=== PATIENT | female | born 1995 | race Hispanic/Latino ===

== ENCOUNTER 2022-04-24 14:50 | Outpatient (CLI) | payer OTHER | END 2022-04-24 14:51 | disposition home or self-care (01) | LOC: CSHULT 14:50 | PROVIDERS: ATTEND Family Medicine | DX: Z34.83 Encounter for supervision of other normal pregnancy, third trimester (principal); Z3A.31 31 weeks gestation of pregnancy | CPT/HCPCS: 76805 ==

== ENCOUNTER 2022-06-05 11:19 | Inpatient (IN) | payer MEDICAID, OTHER ==
[2022-06-05] MEDS ORDERED: hydrALAZINE 20 MG/ML VIAL SLOW IVP PRN ×2 (12:16→22:05)
[2022-06-05] MEDS ORDERED: HYDROcodone/Acetaminophen 5/325 mg Tablet PO PRN (12:16)
[2022-06-05] MEDS ORDERED: Diphenoxylate HCl/Atropine Tablet PO PRN (12:16)
[2022-06-05] MEDS ORDERED: Carboprost 250 MCG/ML AMP IM PRN (12:16)
[2022-06-05] MEDS ORDERED: Methylergonovine 0.2 MG/ML VIAL IM PRN (12:16)
[2022-06-05] MEDS ORDERED: Promethazine HCl 25 MG/ML VIAL IM PRN ×3 (12:16→22:05)
[2022-06-05] MEDS ORDERED: Acetaminophen 500 MG TAB PO PRN (12:16)
[2022-06-05] MEDS ORDERED: Ibuprofen 800 MG TAB PO PRN (12:16)
[2022-06-05] MEDS ORDERED: Misoprostol 200 MCG TAB PR PRN (12:16)
[2022-06-05] MEDS ORDERED: Butorphanol Tartrate 1 MG/ML VIAL SLOW IVP PRN (12:16)
[2022-06-05] MEDS ORDERED: Lidocaine 1% (PF) 30 ML VIAL SC PRN (12:16)
[2022-06-05] MEDS ORDERED: Ondansetron PF 4 MG/2 ML Vial IVP PRN ×3 (12:16→22:05)
[2022-06-05] MEDS ORDERED: NS w/ Oxytocin 30 units 500 ML IV SCH ×3 (12:30→22:05)
[2022-06-05 12:53] VITALS: BMI 29.2
[2022-06-05 12:53] LABS: Hemoglobin 9.7 g/dL (12.0-15.5); Mean Corpuscular HGB CONC 33.4 g/dL (32.0-36.0); Mean Corpuscular Hemoglobin 28.4 pg (27.0-33.0); Mean Corpuscular Volume 84.8 fl (81.6-98.3); Mean Platelet Volume 11.2 fl (7.4-10.4); Platelet Count 240 10x3/uL (150-450); RBC Distribution Width 14.6 % (11.5-14.5); Red Blood Cell (RBC) Count 3.42 10x6/uL (3.90-5.03); White Blood Cell (WBC) Count 14.6 10x3/uL (3.5-10.5)
[2022-06-05] MEDS ORDERED: NS w/ Oxytocin 30 units 500 ML ONE (13:00)
[2022-06-05] MEDS: Lactated Ringer's 1,000 ML IV SCH (13:13)
[2022-06-05 13:25] LABS: Syphilis Antibody Nonreactive (Nonreactive); Syphilis Antibody Index 0.03 S/CO (<1.00 Non-Reactive)
[2022-06-05 13:27] LABS: HBSAg Index 0.12 S/CO (0-0.99); Hep B Surf Ag Non-Reactive S/CO (NonReactive)
[2022-06-05 14:14] LABS: SARS-CoV-2 NAA Rapid Test Not Detected (NotDetected)
[2022-06-05] MEDS ORDERED: Fentanyl 2 mcg/Bup 0.1% Cadd 100 ML ONE (17:06)
[2022-06-05] MEDS ORDERED: diphenhydrAMINE 50 MG/ML VIAL IVP PRN (18:35)
[2022-06-05] MEDS ORDERED: Naloxone HCl 0.4 mg/ml Vial IVP PRN ×2 (18:35)
[2022-06-05] MEDS ORDERED: ePHEDrine Sulfate 50 MG/10 ML VIAL SLOW IVP PRN (18:35)
[2022-06-05] MEDS ORDERED: Moisturizing Cream (Eucerin) 113 GM JAR TOP PRN (18:35)
[2022-06-05] MEDS ORDERED: Acetaminophen 325 MG TAB PO PRN (18:35)
[2022-06-05] MEDS ORDERED: Lactated Ringer's 500 ML IV PRN (18:45)
[2022-06-05] MEDS ORDERED: Communication Order-Pharmacy FS SCH (18:45)
[2022-06-05] MEDS ORDERED: Fentanyl 2 mcg/Bupivacaine 0.1% Cassette 100 ML EPIDURAL SCH (18:45)
[2022-06-05] MEDS ORDERED: Bisacodyl 10 MG SUPP PR PRN (22:05)
[2022-06-05] MEDS ORDERED: diphenhydrAMINE 25 MG CAP PO PRN (22:05)
[2022-06-05] MEDS ORDERED: Boostrix 0.5 ML (Tdap) VIAL (>/=7 yrs of age) IM ONE (22:05)
[2022-06-05] MEDS ORDERED: Milk Of Magnesia 30 ML UDCUP PO PRN (22:05)
[2022-06-05] MEDS ORDERED: Preparation H Ointment 28 GM TUBE PR PRN (22:05)
[2022-06-05] MEDS ORDERED: Benzocaine-Menthol 82.5 ML CAN TOP PRN (22:05)
[2022-06-05] MEDS ORDERED: Lanolin Ointment 7 GM TUBE TOP PRN (22:05)
[2022-06-05] MEDS: Ibuprofen 800 MG TAB PO SCH (22:11)
[2022-06-05] MEDS ORDERED: Docusate 100 MG CAP PO SCH (22:15)
[2022-06-06] MEDS: Ibuprofen 800 MG TAB PO SCH ×3 (05:38→20:59)
[2022-06-06] MEDS: Prenatal Vitamin 1 TAB PO SCH (08:59)
[2022-06-06] MEDS: Docusate 100 MG CAP PO SCH ×2 (08:59→20:58)
[2022-06-06] MEDS: Ferrous Sulfate 325 MG TAB PO SCH ×2 (08:59→17:57)
[2022-06-06] MEDS: HYDROcodone/Acetaminophen 5/325 mg Tablet PO PRN ×2 (14:13→20:58)
[2022-06-07] MEDS: Ibuprofen 800 MG TAB PO SCH (05:19)
[2022-06-07] MEDS: Lactated Ringer's 1,000 ML IV SCH (07:20)
[2022-06-07 08:18] VITALS: BP 90/51; TEMP 98.1
[2022-06-07] MEDS: Docusate 100 MG CAP PO SCH (08:27)
[2022-06-07] MEDS: Ferrous Sulfate 325 MG TAB PO SCH (08:27)
[2022-06-07] MEDS: Prenatal Vitamin 1 TAB PO SCH (08:27)
== END 2022-06-07 11:30 | disposition home or self-care (01) | DRG 807 ==
LOC: CSHLD/OP 11:19 → CSHLD 12:03 → CSHPP 21:52
PROVIDERS: ADMIT Family Medicine; ATTEND Family Medicine
PROC: 10E0XZZ Delivery of Products of Conception, External Approach (ICD-10-PCS; principal; 2022-06-05)
DX: O42.02 Full-term premature rupture of membranes, onset of labor within 24 hours of rupture (principal); Z37.0 Single live birth; Z20.822 Contact with and (suspected) exposure to COVID-19; Z3A.38 38 weeks gestation of pregnancy; Z79.899 Other long term (current) drug therapy
CPT/HCPCS: 51702; 85027; 86780; 86850; 86900; 86901; 87340; 99285; J2590; J7120; U0002